=== PATIENT | male | born 1965 | race Caucasian/White ===

== ENCOUNTER 2025-03-06 17:15 | Emergency (ER) | payer OTHER, SELFPAY ==
[2025-03-06 17:30] VITALS: BP 130/70; PULSE 67; TEMP 36.6; O2SAT 96; BMI 23.4
--- NOTE | 2025-03-06 17:36 | ED.GENADUL1 ---
HPI HPI - General Adult General Chief complaint: Recheck/Abnormal Lab/Rx Stated complaint: BRUISES ON BODY, HAS ITP Time Seen by Provider: 03/06/25 17:22 History of Present Illness HPI narrative: The patient is a 59-year-old female who is from [facility] who is visiting family locally who presents to the ER today for evaluation concerns for abnormal bruising. 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 She mention she has been in remission since this time. She reports her last platelet count was 200 and does see a cloth stretcher at home in [place]. She mentions her next appointment with her cloth stretcher is next month. She reports over the past few days she has noticed some bruising to her extremities and hip area. She denies any injury/trauma. She reports feeling a little more fatigued than normal. No chest pain, shortness of breath, dizziness or subsequent syncope. No other sick symptoms including fever/chills, cough/cold symptoms, or nausea/vomiting/diarrhea. Related Data Home Medications ?Medication ?Instructions ?Recorded ?Confirmed fexofenadine 180 mg tablet 180 mg PO DAILY 03/06/25 03/06/25 gabapentin 300 mg capsule 300 mg PO DAILY 03/06/25 03/06/25 levothyroxine 112 mcg tablet 112 mcg PO DAILY 03/06/25 03/06/25 metoprolol tartrate 50 mg tablet 50 mg PO DAILY 03/06/25 03/06/25 montelukast 10 mg tablet 10 mg PO DAILY 03/06/25 03/06/25 pantoprazole 20 mg tablet,delayed 20 mg PO DAILY 03/06/25 03/06/25 release pramipexole 0.75 mg tablet 0.75 mg PO DAILY 03/06/25 03/06/25 pravastatin 40 mg tablet 40 mg PO DAILY 03/06/25 03/06/25 valacyclovir 500 mg tablet 500 mg PO DAILY 03/06/25 03/06/25 vibegron 75 mg tablet (Gemtesa) 75 mg PO DAILY 03/06/25 03/06/25 Allergies Allergy/AdvReac Type Severity Reaction Status Date / Time doxycycline Allergy itching Verified 03/06/25 17:26 hydrocodone Allergy itching Verified 03/06/25 17:26 tetracycline Allergy itching Verified 03/06/25 17:26 Review of Systems ROS Status of ROS 10 or more systems reviewed and unremarkable except as noted in history and below PFSH PFSH Social History Little interest or pleasure in doing things: not at all Feeling down, depressed, or hopeless: not at all Exam Narrative Exam Narrative: Constituational: Awake/ alert, no apparent distress, well hydrated HENMT: normocephalic, external ears normal, moist oral mucous membranes and oropharynx normal Eyes: Normal external ears and conjunctivae normal Neck: ROM intact Chest: inspection of chest normal Respiratory: Normal respiratory effort, clear to auscultation bilaterally Cardio: regular rate and regular rhythm GI: soft to palpation and non-tender Back: nontender MSK: ROM intact, +NVI Skin: + Few scattered areas of faint and soft ecchymosis to LUE, RLE and L hip Neuro: no focal deficits Psych: mental status grossly normal Constitutional Vital Signs, click to edit/add: Last Vital Signs Temp 97.9 F 03/06/25 17:30 Pulse 67 03/06/25 17:30 Resp 16 03/06/25 17:30 BP 130/70 03/06/25 17:30 Pulse Ox 96 03/06/25 17:30 O2 Del Method Room Air 03/06/25 17:30 Course Vital Signs Vital signs: Vital Signs Temperature 97.9 F 03/06/25 17:30 Pulse Rate 67 03/06/25 17:30 Respiratory Rate 16 03/06/25 17:30 Blood Pressure 130/70 03/06/25 17:30 Pulse Oximetry 96 03/06/25 17:30 Oxygen Delivery Method Room Air 03/06/25 17:30 Temperature 97.9 F 03/06/25 17:30 Pulse Rate 67 03/06/25 17:30 Respiratory Rate 16 03/06/25 17:30 Blood Pressure 130/70 03/06/25 17:30 Pulse Oximetry 96 03/06/25 17:30 Oxygen Delivery Method Room Air 03/06/25 17:30 Medical Decision Making [facility] Narrative Medical decision making narrative: The patient is a well-appearing 59-year-old female with a significant history of ITP who presented to the emergency department today for evaluation for concerns for abnormal bruising and thrombocytopenia. Initial examination vital signs overall stable. Patient does have few scattered faint areas of ecchymosis to her upper and lower extremities. No evidence of hematoma or active bleeding otherwise. Labs stable and showed no significant leukocytosis, anemia, thrombocytopenia. Historically patient's platelets do trend in the 200s to 240s. Electrolytes including renal and hepatic function otherwise stable. Patient's blood glucoses in the 200s however she is diabetic. No clinical evidence concerning for DKA. Discussed these findings with the patient including recommendations for supportive care of ecchymosis. Advised on close follow-up with her cloth stretcher at home in [place]. She mention she does have an appointment with them next month. Discussed signs and symptoms of any worsening condition and when to consider reevaluation. Patient verbalized an understanding of this and is agreeable with the plan to be discharged home. Medical Records Medical records reviewed: Yes I reviewed the patient's medical records Lab Data Lab results reviewed: Yes I reviewed the patient's lab results Labs: Lab Results 03/06/25 Range/Units 18:06 WBC 7.4 (4.0-11.0) 10^3/uL RBC 4.57 L (4.70-6.10) 10^6/uL Hgb 13.4 L (14.0-18.0) g/dL Hct 40.1 L (42.0-54.0) % MCV 87.7 (80.0-94.0) fL MCH 29.3 (25.9-34.0) pg MCHC 33.4 (29.9-35.2) g/dL RDW 12.9 (11.0-15.0) % Plt Count 266 (150-450) 10^3/uL MPV 9.9 (9.5-13.5) fL Neut % (Auto) 48.2 (43.0-75.0) % Lymph % (Auto) 42.7 (20.5-60.0) % [place] % (Auto) 4.9 (1.7-12.0) % Eos % (Auto) 3.4 (0.9-7.0) % Baso % (Auto) 0.7 (0.2-2.0) % Neut # (Auto) 3.6 (1.4-6.5) 10^3/uL Lymph # (Auto) 3.2 (1.2-3.8) 10^3/uL [place] # (Auto) 0.4 (0.3-0.8) 10^3/uL Eos # (Auto) 0.3 (0.0-0.7) 10^3/uL Baso # (Auto) 0.1 (0.0-0.1) 10^3/uL Abs Immat Gran (auto) 0.01 (0.00-0.03) 10^3/uL Imm/Tot Granulo (auto) 0.1 (0.0-0.5) % Sodium 136 (136-145) mmol/L Potassium 3.4 L (3.5-5.1) mmol/L Chloride 101 (98-107) mmol/L Carbon Dioxide 26.8 (21.0-32.0) mmol/L Anion Gap 11.6 BUN 17.0 (7.0-18.0) mg/dL Creatinine 0.90 (0.70-1.30) mg/dL Est GFR ( Amer) >60 (>=60 mL/min/1.73m^2) Est GFR (Non-Af Amer) >60 (>=60 mL/min/1.73m^2) BUN/Creatinine Ratio 18.9 Glucose 204 H (74-106) mg/dL Calcium 9.0 (8.5-10.1) mg/dL Total Bilirubin 0.5 (0.2-1.0) mg/dL AST 28 (15-37) U/L ALT 40 (16-63) U/L Alkaline Phosphatase 105 (46-116) U/L Total Protein 7.1 (6.4-8.2) g/dL Albumin 3.6 (3.4-5.0) g/dL Globulin 3.5 g/dL Albumin/Globulin Ratio 1.0 Discharge Plan Discharge Chief Complaint: Recheck/Abnormal Lab/Rx Clinical Impression: Ecchymosis Patient Disposition: Home, Self-Care Prescriptions / Home Meds: No Action metoprolol tartrate 50 mg tablet 50 mg PO DAILY pravastatin 40 mg tablet 40 mg PO DAILY fexofenadine 180 mg tablet 180 mg PO DAILY valacyclovir 500 mg tablet 500 mg PO DAILY pantoprazole 20 mg tablet,delayed release (DR/EC) 20 mg PO DAILY gabapentin 300 mg capsule 300 mg PO DAILY montelukast 10 mg tablet 10 mg PO DAILY levothyroxine 112 mcg tablet 112 mcg PO DAILY pramipexole 0.75 mg tablet 0.75 mg PO DAILY Gemtesa 75 mg tablet 75 mg PO DAILY Print Language: Guyanese Additional Instructions: Platelet count today was 260. Please continue to monitor for any signs or symptoms of bleeding including abnormal bruising. Please follow-up with your cloth stretcher upon returning home. May return to the ER with any concerns. Referrals: Physician,Non-Staff, MD [Primary Care Provider] - 1 week
--- NOTE | 2025-03-06 18:03 | PC.NURSE ---
History of blood clotting disorder and has noticed multiple bruisies to arms and legs.
[2025-03-06 18:11] LABS: Basophils Absolute Auto 0.1 10^3/uL (0.0-0.1); Basophils Percent Auto 0.7 % (0.2-2.0); Eosinophils Absolute Auto 0.3 10^3/uL (0.0-0.7); Eosinophils Percent Auto 3.4 % (0.9-7.0); Hematocrit 40.1 % (42.0-54.0); Hemoglobin 13.4 g/dL (14.0-18.0); Immature Granulocytes Abs Auto 0.01 10^3/uL (0.00-0.03); Immature Granulocytes Pct Auto 0.1 % (0.0-0.5); Lymphocytes Absolute Auto 3.2 10^3/uL (1.2-3.8); Lymphocytes Percent Auto 42.7 % (20.5-60.0); Mean Corpuscular HGB Conc 33.4 g/dL (29.9-35.2); Mean Corpuscular Hemoglobin 29.3 pg (25.9-34.0); Mean Corpuscular Volume 87.7 fL (80.0-94.0); Mean Platelet Volume 9.9 fL (9.5-13.5); Monocytes Absolute Auto 0.4 10^3/uL (0.3-0.8); Monocytes Percent Auto 4.9 % (1.7-12.0); Neutrophils Absolute Auto 3.6 10^3/uL (1.4-6.5); Neutrophils Percent Auto 48.2 % (43.0-75.0); Platelet Count 266 10^3/uL (150-450); Red Blood Count 4.57 10^6/uL (4.70-6.10); Red Cell Distribution Width 12.9 % (11.0-15.0); White Blood Count 7.4 10^3/uL (4.0-11.0)
[2025-03-06 18:44] LABS: Alanine Aminotransferase 40 U/L (16-63); Albumin Level 3.6 g/dL (3.4-5.0); Alkaline Phosphatase 105 U/L (46-116); Anion Gap 11.6; Aspartate Amino Transferase 28 U/L (15-37); BUN Creatinine Ratio 18.9; Bilirubin Total 0.5 mg/dL (0.2-1.0); Carbon Dioxide 26.8 mmol/L (21.0-32.0); Chloride 101 mmol/L (98-107); Estimated GFR (African America >60 (>=60 mL/min/1.73m^2); Estimated GFR (Non-African Ame >60 (>=60 mL/min/1.73m^2); Globulin 3.5 g/dL; Glucose 204 mg/dL (74-106); Potassium 3.4 mmol/L (3.5-5.1); Sodium 136 mmol/L (136-145); Total Protein 7.1 g/dL (6.4-8.2)
== END 2025-03-06 19:05 | disposition home or self-care (01) ==
PROVIDERS: Nurse Practitioner; Emergency Provider Emergency Medicine; PCP Internal Medicine
DX: R58 Hemorrhage, not elsewhere classified (principal); E11.9 Type 2 diabetes mellitus without complications
CPT/HCPCS: 36415; 80053; 85025; 99283